=== PATIENT | female | born 1985 | race Caucasian/White ===

== ENCOUNTER 2019-12-13 21:40 | Emergency (ER) | payer MEDICAID, OTHER ==
[~2019-12-13] VITALS: Ht 172.7 cm; Wt 27.0 kg
[~2019-12-13 21:40] MED LIST: HYDR-4383 PO; IBUP-1986 PO; ONDA8TAB9 PO
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
[2019-12-13 22:05] VITALS: BP 148/92
== END 2019-12-13 22:08 ==
LOC: ER 21:40
DX: Z04.1 Encounter for examination and observation following transport accident (principal); Z79.899 Other long term (current) drug therapy; V49.59XA Passenger injured in collision with other motor vehicles in traffic accident, initial encounter; Y93.89 Activity, other specified; Y92.488 Other paved roadways as the place of occurrence of the external cause; Y99.8 Other external cause status
CPT/HCPCS: 99283